=== PATIENT | male | born 1950 | race Two or more races ===

== ENCOUNTER → 2018-09-12 | Outpatient (CLI) | payer MEDICARE ==
--- NOTE | 2018-09-12 17:40 | US ---
EXAMINATION TYPE: US carotid duplex BILAT DATE OF EXAM: 09/12/2018 COMPARISON: NONE CLINICAL HISTORY: R42 Dizziness. Dizziness and giddiness, 1 episode on 08/21/18. EXAM MEASUREMENTS: RIGHT: Peak Systolic Velocity (PSV) cm/sec ----- Right CCA: 86.6 ----- Right ICA: 63.9 ----- Right ECA: 64.3 ICA/CCA ratio: 0.7 RIGHT: End Diastole cm/sec ----- Right CCA: 23.8 ----- Right ICA: 21.1 ----- Right ECA: 11.0 LEFT: Peak Systolic Velocity (PSV) cm/sec ----- Left CCA: 83.3 ----- Left ICA: 64.9 ----- Left ECA: 87.7 ICA/CCA ratio: 0.8 LEFT: End Diastole cm/sec ----- Left CCA: 21.6 ----- Left ICA: 22.3 ----- Left ECA: 20.5 VERTEBRALS (direction of flow): Right Vertebral: Antegrade Left Vertebral: Antegrade Rhythm: Normal Intimal thickening seen bilaterally. Minimal plaque seen right bifurcation. No elevated velocities ob tained. No significant stenosis seen. Grayscale, color Doppler, spectral Doppler imaging performed of the carotid arteries. Waveform analys is does not show significant stenosis in the internal carotid arteries. IMPRESSION: No hemodynamic significant stenosis of the proximal internal carotid arteries bilaterall y by Doppler criteria, an indirect measurement of carotid stenosis.
== END | disposition home or self-care (01) ==
LOC: RADUSWWP 16:22
PROVIDERS: ATTEND Family Medicine
DX: R42 Dizziness and giddiness (principal)
CPT/HCPCS: 93880

== ENCOUNTER 2022-08-23 20:01 | Emergency (ER) | payer MEDICARE ==
[2022-08-23 21:02] VITALS: RESP 18
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
--- NOTE | 2022-08-23 21:46 | XR ---
EXAMINATION TYPE: XR chest 2V DATE OF EXAM: 08/23/2022 9:17 PM COMPARISON: none TECHNIQUE: XR chest 2V Frontal and lateral views of the chest. CLINICAL INDICATION:Male, 72 years old with history of pain; FINDINGS: Lungs/Pleura: Prominent interstitial lung markings are seen scattered throughout the lungs with nona ening of the diaphragm and increased lucency of the lung apices. No evidence of focal consolidation, pneumothorax or pleural effusion. Pulmonary vascularity: Unremarkable. Heart/mediastinum: Cardiomediastinal silhouette is prominent in size. Musculoskeletal: No acute osseous pathology. Remote right-sided rib fractures. IMPRESSION: 1. No acute cardiopulmonary disease process. 2. COPD changes.
--- NOTE | 2022-08-23 21:47 | XR ---
EXAMINATION TYPE: XR hand complete RT DATE OF EXAM: 08/23/2022 9:21 PM INDICATION: Patient age:Male; 72 years old; Reason for study: pain; COMPARISON: None TECHNIQUE: Frontal, lateral and oblique views of the right hand were obtained. FINDINGS: Normal alignment of the visualized joints. No acute osseous pathology is identified. No e vidence of soft tissue swelling. IMPRESSION: No acute osseous pathology.
--- NOTE | 2022-08-23 21:48 | XR ---
EXAMINATION TYPE: XR elbow complete RT DATE OF EXAM: 08/23/2022 9:22 PM INDICATION: Patient age:Male; 72 years old; Reason for study: pain; COMPARISON: None TECHNIQUE: The right elbow was examined in AP, lateral, and oblique projections. FINDINGS: Mild soft tissue swelling around the posterior elbow with questionable anterior fat pad sig n. No displaced fractures definitively visualized. Degeneration changes with osteophyte formation sebastian und the coronoid process. No right lateral upper condyle. IMPRESSION: No obvious displaced fracture there is questionable anterior fat pad sign suggesting occult fracture consider CT as clinically warranted.
[2022-08-23 23:11] VITALS: BP 143/89; PULSE 69; TEMP 97.3
== END 2022-08-23 23:08 | disposition home or self-care (01) ==
LOC: EC 20:01
DX: S42.401A Unspecified fracture of lower end of right humerus, initial encounter for closed fracture (principal); J44.9 Chronic obstructive pulmonary disease, unspecified; V89.2XXA Person injured in unspecified motor-vehicle accident, traffic, initial encounter; Y92.411 Interstate highway as the place of occurrence of the external cause
CPT/HCPCS: 71046; 99284

== ENCOUNTER 2024-01-28 15:18 | Observation (INO) | payer MEDICARE, OTHER ==
--- NOTE | 2024-01-28 15:36 | ED ---
Male Urogenital HPI - General Chief complaint: Urogenital Stated complaint: Abdominal Pain Time Seen by Provider: 01/28/24 15:33 Source: patient, family, RN notes reviewed, old records reviewed, Caregiver Mode of arrival: ambulatory Limitations: altered mental status - History of Present Illness Initial comments: This is a 73-year-old male to ER for evaluation of decreased urinary output with abdominal pain and bloating. No history of abdominal surgery no real significant medical history. History obtained from daughter at bedside as patient is not speaking with. Symptoms for greater than 2 days MD Complaint: dysuria -: days(s) Severity: moderate Consistency: constant Improves with: none Worsens with: none new medication Reports: urinary retention - Related Data Home Medications Medication Instructions Recorded Confirmed Lisinopril-Hctz 20-25 mg 1 tab PO DAILY 01/28/24 01/28/24 [Zestoretic 20-25] Meloxicam [Mobic] 15 mg PO DAILY 01/28/24 01/28/24 Previous Rx's Medication Instructions Recorded Tamsulosin [Flomax] 0.4 mg PO BID 30 Days #60 cap 01/29/24 polyethylene glycoL 3350 [Miralax] 17 gm PO DAILY 30 Days #30 packet 01/29/24 Allergies Allergy/AdvReac Type Severity Reaction Status Date / Time No Known Allergies Allergy Verified 02/03/24 05:19 Review of Systems ROS Statement: Those systems with pertinent positive or pertinent negative responses have been documented in the HPI. ROS Other: All systems not noted in ROS Statement are negative. Past Medical History Past Medical History: Hypertension History of Any Multi-Drug Resistant Organisms: None Reported Past Surgical History: No Surgical Hx Reported Past Psychological History: No Psychological Hx Reported Smoking Status: Never smoker Past Alcohol Use History: None Reported, Daily Past Drug Use History: None Reported General Exam General appearance: alert, in no apparent distress, anxious Head exam: Present: atraumatic, normocephalic, normal inspection Eye exam: Present: normal appearance, PERRL, EOMI. Absent: scleral icterus, conjunctival injection, periorbital swelling ENT exam: Present: normal exam, mucous membranes moist Neck exam: Present: normal inspection. Absent: tenderness, meningismus, l ymphadenopathy Respiratory exam: Present: normal lung sounds bilaterally. Absent: respiratory distress, wheezes, rales, rhonchi, stridor Cardiovascular Exam: Present: regular rate, normal rhythm, normal heart sounds. Absent: systolic murmur, diastolic murmur, rubs, gallop, clicks GI/Abdominal exam: Present: soft, normal bowel sounds. Absent: distended, tenderness, guarding, rebound, rigid Extremities exam: Present: normal inspection, full ROM, normal capillary refill. Absent: tenderness, pedal edema, joint swelling, calf tenderness Back exam: Present: normal inspection Neurological exam: Present: alert, oriented X3, CN II-XII intact Psychiatric exam: Present: normal affect, normal mood Skin exam: Present: warm, dry, intact, normal color. Absent: rash Course Vital Signs 01/28/24 01/28/24 01/28/24 15:26 17:30 20:28 Temperature 97.8 F Pulse Rate 104 H 82 82 Respiratory 18 18 18 Rate Blood Pressure 160/90 129/83 132/80 O2 Sat by Pulse 95 99 100 Oximetry - Reevaluation(s) Reevaluation #1: 01/28/24 16:25 Medical records reviewed Reevaluation #2: 01/28/24 16:25 Patient symptoms unchanged Reevaluation #3: 01/28/24 16:25 Patient informed of results and questions answered Reevaluation #4: Was pt. sent in by a medical professional or institution (, PA, MILITARY PILOT, urgent care, hospital, or fpc...) When possible be specific @ -no Did you speak to anyone other than the patient for history (EMS, parent, family, police, friend...)? What history was obtained from this source @ -no Did you review nursing and triage notes (agree or disagree)? Why? @ -agree Are old charts reviewed (outside hosp., previous admission, EMS record, old EKG, old radiological studies, urgent care reports/EKG's, fpc records)? Report findings @ -yes Differential Diagnosis (chest pain, altered mental status, abdominal pain women, abdominal pain men, vaginal bleeding, weakness, fever, dyspnea, syncope, headache, dizziness, GI bleed, back pain, seizure, CVA, palpatations, mental health, musculoskeletal)? @ -prior EKG interpreted by me (3pts min.). @ -no X-rays interpreted by me (1pt min.). @ -no CT interpreted by me (1pt min.). @ -yes negative for acute disease U/S interpreted by me (1pt. min.). @ -no What testing was considered but not performed or refused? (CT, X-rays, U/S, labs )? Why? @ -none What meds were considered but not given or refused? Why? @ -none Did you discuss the management of the patient with other professionals (professionals i.e. Dr., PA, MILITARY PILOT, lab, RT, psych nurse, social work faculty member, ballpoint pens assembler, teacher, articulation officer, case hardener)? Give summary @ -no Was smoking cessation discussed for >3mins.? @ -no Was critical care preformed (if so, how long)? @ -no Were there social determinants of health that impacted care today? How? (Homelessness, low income, unemployed, alcoholism, drug addiction, transportation, low edu. Level, literacy, decrease access to med. care, senior living, rehab)? @ -none Was there de-escalation of care discussed even if they declined (Discuss DNR or withdrawal of care, Hospice)? DNR status @ -no What co-morbidities impacted this encounter? (DM, HTN, Smoking, COPD, CAD, Cancer, CVA, ARF, Chemo, Hep., AIDS, mental health diagnosis, sleep apnea, morbid obesity)? @ -none Was patient admitted / discharged? Hospital course, mention meds given and route, prescriptions, significant lab abnormalities, going to OR and other pertinent info. @ - 73 male to the ER for evaluation of acute urinary retention presenting with positive abdominal pain severe abdominal pain [place] catheter placed greater than 1000 output, patient admitted for urinary retention as he has poor follow- up Admitted Undiagnosed new problem with uncertain prognosis? @ -no Drug Therapy requiring intensive monitoring for toxicity (Heparin, Nitro, Insulin, Cardizem)? @ -no Were any procedures done? @ -no Diagnosis/symptom? @ -Retention with UTI Acute, or Chronic, or Acute on Chronic? @ -Acute Uncomplicated (without systemic symptoms) or Complicated (systemic symptoms)? @ -Complicated Side effects of treatment? @ -no Exacerbation, Progression, or Severe Exacerbation? @ -exacerbation Poses a threat to life or bodily function? How? (Chest pain, [place], [place], pneumonia, PE, COPD, DKA, ARF, appy, cholecystitis, CVA, Diverticulitis, Homicidal, Suicidal, threat to staff... and all critical care pts) @ -no Reevaluation #5: Differential Abdominal Pain Men: Appendicitis, cholecystitis, diverticulosis, ischemic bowel, pancreatitis, he patitis, UTI, gastroenteritis, AAA, incarcerated hernia, bowel obstruction, constipation, inflammatory bowel, hepatitis, peptic ulcer disease, splenic infarction, perforated viscus, testicular torsion, this is not meant to be an all-inclusive list - Consultations Consultation #1: Spoke with sound who agrees to admit the patient Medical Decision Making - Medical Decision Making 73 male to the ER for evaluation of acute urinary retention presenting with positive abdominal pain severe abdominal pain [place] catheter placed greater than 1000 output, patient admitted for urinary retention as he has poor follow-up - Lab Data Result diagrams: 01/29/24 04:30 01/29/24 04:30 Lab Results 01/28/24 01/28/24 01/28/24 Range/Units 15:41 15:41 15:41 WBC 12.4 H (3.8-10.6) k/uL RBC 5.25 (4.30-5.90) m/uL Hgb 15.0 (13.0-17.5) gm/dL Hct 46.0 (39.0-53.0) % MCV 87.7 (80.0-100.0) fL MCH 28.6 (25.0-35.0) pg MCHC 32.6 (31.0-37.0) g/dL RDW 13.4 (11.5-15.5) % Plt Count 222 (150-450) k/uL MPV 7.2 Neutrophils % 86 % Lymphocytes % 8 % Monocytes % 4 % Eosinophils % 1 % Basophils % 0 % Neutrophils # 10.6 H (1.3-7.7) k/uL Lymphocytes # 1.0 (1.0-4.8) k/uL Monocytes # 0.5 (0-1.0) k/uL Eosinophils # 0.1 (0-0.7) k/uL Basophils # 0.0 (0-0.2) k/uL Sodium 140 (137-145) mmol/L Potassium 3.7 (3.5-5.1) mmol/L Chloride 108 H (98-107) mmol/L Carbon Dioxide 23 (22-30) mmol/L Anion Gap 9 mmol/L BUN 12 (9-20) mg/dL Creatinine 1.01 (0.66-1.25) mg/dL Est GFR (CKD-EPI)AfAm 84 (>60 ml/min/1.73 sqM) Est GFR (CKD-EPI)NonAf 73 (>60 ml/min/1.73 sqM) Glucose 131 H (74-99) mg/dL Calcium 9.0 (8.4-10.2) mg/dL Total Bilirubin 1.0 (0.2-1.3) mg/dL AST 23 (17-59) U/L ALT 19 (4-49) U/L Alkaline Phosphatase 112 (38-126) U/L Total Protein 6.9 (6.3-8.2) g/dL Albumin 4.1 (3.5-5.0) g/dL Amylase 45 (30-110) U/L Lipase 65 (23-300) U/L Urine Color Colorless Urine Appearance Clear (Clear) Urine pH 6.5 (5.0-8.0) Ur Specific [place] 1.006 (1.001-1.035) Urine Protein Negative (Negative) Urine Glucose (UA) Negative (Negative) Urine Ketones Negative (Negative) Urine Blood Moderate H (Negative) Urine Nitrite Negative (Negative) Urine Bilirubin Negative (Negative) Urine Urobilinogen <2.0 (<2.0) mg/dL Ur Leukocyte Esterase Negative (Negative) Urine RBC 15 H (0-5) /hpf Urine WBC 1 (0-5) /hpf Urine Mucus Rare H (None) /hpf - Radiology Data Radiology results: report reviewed (CT abdomen pelvis significant distended urinary bladder), image reviewed Disposition Clinical Impression: Abdominal pain, Urinary retention, Malfunction of [place] catheter Disposition: ADMITTED IP TO THIS [facility] Condition: Stable Is patient prescribed a controlled substance at d/c from ED?: No Time of Disposition: 19:00
[2024-01-28] MEDS: SODIUM CHLORIDE 0.9% 1,000 ML IV STA (15:52)
[2024-01-28 16:03] LABS: Basophils % (A) 0 %; Eosinophils # (A) 0.1 k/uL (0-0.7); Eosinophils % (A) 1 %; Lymphocytes % (A) 8 %; MCH 28.6 pg (25.0-35.0); MCHC 32.6 g/dL (31.0-37.0); MCV 87.7 fL (80.0-100.0); Mean Platelet Volume 7.2; Monocytes # (A) 0.5 k/uL (0-1.0); Monocytes % (A) 4 %; Neutrophils # (A) 10.6 k/uL (1.3-7.7); Neutrophils % (A) 86 %; Platelet Count 222 k/uL (150-450); RBC 5.25 m/uL (4.30-5.90); RDW 13.4 % (11.5-15.5); WBC 12.4 k/uL (3.8-10.6)
[2024-01-28 16:14] LABS: ALT 19 U/L (4-49); AST 23 U/L (17-59); African American GFR (CKD) 84 (>60 ml/min/1.73 sqM); Albumin 4.1 g/dL (3.5-5.0); Alkaline Phosphatase 112 U/L (38-126); Amylase 45 U/L (30-110); Anion Gap 9 mmol/L; Blood Urea Nitrogen 12 mg/dL (9-20); Carbon Dioxide 23 mmol/L (22-30); Chloride 108 mmol/L (98-107); Glucose 131 mg/dL (74-99); Lipase 65 U/L (23-300); Non-African American GFR(CKD) 73 (>60 ml/min/1.73 sqM); Potassium 3.7 mmol/L (3.5-5.1); Sodium 140 mmol/L (137-145); Total Protein 6.9 g/dL (6.3-8.2)
--- NOTE | 2024-01-28 17:17 | CT ---
EXAMINATION TYPE: CT abdomen pelvis wo con CT DLP: 979.1 mGycm, Automated exposure control for dose reduction was used. DATE OF EXAM: 01/28/2024 4:34 PM COMPARISON: None CLINICAL INDICATION: Male, 73 years old with history of abdominal pain; abdominal/flank pain TECHNIQUE: Axial CT abdomen pelvis wo con;Sagittal and coronal reformats were created on a separate workstation. Contrast used: mL of , (none if empty) Oral contrast used: without Oral Contrast (none if empty) FINDINGS: LOWER CHEST: Unremarkable left lower lobe 11 mm pulmonary nodule. ABDOMEN LIVER: Unremarkable GALLBLADDER AND BILE DUCTS: Unremarkable. PANCREAS: Unremarkable. SPLEEN: Unremarkable. ADRENAL GLANDS: Unremarkable. KIDNEYS AND URETERS: Mild bilateral hydronephrosis. No obstructing calculus visualized. PELVIS BLADDER: Distended urinary bladder REPRODUCTIVE: Prostate is enlarged in size measuring 6.6 cm in transverse dimension. ABDOMEN & PELVIS STOMACH AND BOWEL: No evidence of bowel obstruction. The appendix is normal. PERITONEUM/RETROPERITONEUM: No evidence of pneumoperitoneum or free fluid. VASCULATURE: No evidence of aortic aneurysm. MUSCULOSKELETAL: No acute osseous abnormalities LYMPH NODES: No gross evidence for lymphadenopathy. SOFT TISSUE/ABDOMINAL WALL: Unremarkable 1. IMPRESSION: 2. Distended urinary bladder with mild bilateral hydronephrosis likely secondary patients time inter arcadio from last void, or bladder outlet obstruction. 3. Prostatomegaly, correlate with serum PSA. 4. Left lower lobe 11 mm pulmonary nodule. Further workup with PET/CTs recommended to exclude neopla stic process. 5. The appendix is normal. 6. No obstructive calculi visualized. [facility], , 01/28/2024 5:15 PM
[2024-01-28 18:56] LABS: Appearance,Urine Clear (Clear); Bilirubin,Urine Negative (Negative); Blood,Urine Moderate (Negative); Color,Urine Colorless; Glucose,Urine (UA) Negative (Negative); Ketones,Urine Negative (Negative); Leukocyte Esterase,Urine Negative (Negative); Mucus,Urine Rare /hpf; Nitrite,Urine Negative (Negative); PH, Urine 6.5 (5.0-8.0); Protein,Urine Negative (Negative); RBC,Urine 15 /hpf (0-5); Specific Gravity,Urine 1.006 (1.001-1.035); Urobilinogen,Urine <2.0 mg/dL (<2.0); WBC,Urine 1 /hpf (0-5)
[2024-01-28] MEDS ORDERED: ONDANSETRON 4 MG/2 ML VIAL IVP PRN (19:01)
[2024-01-28] MEDS ORDERED: NALOXONE 0.4 MG/ML 1 ML VIAL IV PRN (19:01)
[2024-01-28] MEDS ORDERED: MORPHINE SULFATE 4 MG/ML SYRINGE IV PRN (19:01)
--- NOTE | 2024-01-28 23:23 | P.HPIM ---
History of Present Illness H&P Date: 01/28/24 Chief Complaint: Abdominal pain and urinary retention Patient is a 73-year-old male with past medical history of hypertension presented to the ED with abdominal pain and urinary retention. The patient mentions having a low stream of urine since the past couple of days. Today morning he started having lower abdominal pain, without radiation, and was not able to urinate even when he had the urge. The patient denies having any such episodes previously. The patient does not speak [place]ian but daughter at bedside requested to serve as gravity flow irrigator. The daughter reports the patient was burping a lot, patient denies bloating but reports some chronic constipation. The pa tient also uses compression stockings at home for lower extremity edema. Denies dysuria, blood in the urine or stool, incontinence, fever, chills, chest pain, shortness of breath, cough, nausea, vomiting, diarrhea. Vitals: T 97.8 F, P 82 bpm, RR 18, BP 139/83, O2 sat 99% on room air ED documentation reviewed and case discussed with ED provider. Labs show WBC 12.4, glucose 131 and UA shows moderate blood, 15 RBC, rare mucus. CT abdomen and pelvis shows distended urinary bladder with mild bilateral hydronephrosis likely secondary to patient's time interval from last void or bladder outlet obstruction and prostatomegaly. In the ED Trinidad catheter was placed and output was found to be greater than 1000 and he was treated with ketorolac and 0.9 normal saline. Review of systems: Pertinent positives and negatives as discussed in HPI, a complete review of systems was performed and all other systems are negative. PMH: Hypertension PSH: None FMH: None Allergies: None Social history: Tobacco: Former smoker Alcohol: Daily 2 drinks per day Recreational drugs: Denies use Travel: No recent travel history Sick contacts: None Physical examination: Vital signs reviewed General: non toxic, no distress, appears at stated age, obese Derm: no unusual rashes/lesions, warm Head: atraumatic, normocephalic, symmetric Eyes: EOMI, anicteric sclera ENT: Nose and ears atraumatic Cardiovascular: S1S2 reg, no murmur,no edema Lungs: CTA bilateral, no rhonchi, no rales, no accessory muscle use Abdominal: soft, nontender to palpation, no guarding Ext: muscle strength 5 out of 5 in all 4 extremities grossly, no gross muscle atrophy, no contractures, Neuro: CN II-XI grossly intact, no gross focal neuro deficits Psych: Alert, oriented, appropriate affect Assessment/Plan: Patient is a 73-year-old male with past medical history of hypertension presented to the ED with abdominal pain and urinary retention and he is being admitted for further workup of hydronephrosis #. Urinary retention with bilateral hydronephrosis, likely secondary to prostatomegaly Heart rate on presentation 104 bpm, WBC 12.4 Urine output >1000 on Trin[place] catheter placement CT of abdomen and pelvis shows distended urinary bladder with mild bilateral hydronephrosis likely secondary to patient's time interval from last void or bladder outlet obstruction and prostatomegaly. Continue tamsulosin 0.4 mg p.o. at bedtime Urology consulted Discontinue morphine #. Nausea and vomiting, improved Continue ondansetron 4 mg IVP every 8 hours as needed #. Hypertension Continue lisinoprilhydrochlorothiazide 20-25 mg 1 tablet p.o. daily F: 0.9 normal saline 75 mL/h E: Replete as required N: Regular diet A: Ambulatory DVT prophylaxis: Lovenox 40 mg SQ daily The patient is admitted with an anticipated less than 2 midnight stay for evaluation of urinary retention CODE STATUS: Full code Discussed with: Patient Anticipated discharge place: Home Past Medical History Past Medical History: Hypertension, Osteoarthritis (OA) History of Any Multi-Drug Resistant Organisms: None Reported Past Surgical History: No Surgical Hx Reported Past Anesthesia/Blood Transfusion Reactions: No Reported Reaction Past Psychological History: No Psychological Hx Reported Smoking Status: Former smoker Past Alcohol Use History: None Reported, Daily Past Drug Use History: None Reported Medications and Allergies Home Medications Medication Instructions Recorded Confirmed Type Lisinopril-Hctz 20-25 mg 1 tab PO DAILY 01/28/24 01/28/24 History [Zestoretic 20-25] Meloxicam [Mobic] 15 mg PO DAILY 01/28/24 01/28/24 History Tamsulosin [Flomax] 0.4 mg PO HS 01/28/24 01/28/24 History Allergies Allergy/AdvReac Type Severity Reaction Status Date / Time No Known Allergies Allergy Verified 01/28/24 18:48 Physical Exam Vitals: Vital Signs Temp Pulse Pulse Resp BP BP Pulse Ox 01/28/24 21:20 98.0 F 82 17 172/74 96 01/28/24 20:28 82 18 132/80 100 01/28/24 17:30 82 18 129/83 99 01/28/24 15:26 97.8 F 104 H 18 160/90 95 Intake and Output 01/28/24 01/28/24 01/28/24 06:59 14:59 22:59 Output Total 800 Balance -800 Output: Urine 800 Uretheral (Trin[place]) 800 Other: Weight 104.326 kg Results CBC & Chem 7: 01/28/24 15:41 01/28/24 15:41 Labs: Abnormal Lab Results - Last 24 Hours (Table) 01/28/24 01/28/24 01/28/24 Range/Units 15:41 15:41 15:41 WBC 12.4 H (3.8-10.6) k/uL Neutrophils # 10.6 H (1.3-7.7) k/uL Chloride 108 H (98-107) mmol/L Glucose 131 H (74-99) mg/dL Urine Blood Moderate H (Negative) Urine RBC 15 H (0-5) /hpf Urine Mucus Rare H (None) /hpf Thrombosis Risk Factor Assmnt - Choose All That Apply Any of the Below Risk Factors Present?: No Other Risk Factors: No Other congenital or acquired thrombophilia - If yes, enter type in comment: No Thrombosis Risk Factor Assessment Level: Very Low Risk
[2024-01-29 01:31] VITALS: RESP 16
[2024-01-29] MEDS: SODIUM CHLORIDE 0.9% 1,000 ML IV SCH (04:16)
[2024-01-29] MEDS: KETOROLAC 15 MG/ML 1 ML VIAL IVP STA (04:17)
[2024-01-29] MEDS: ENOXAPARIN 40 MG/0.4 ML SYRINGE SQ SCH (08:00)
[2024-01-29] MEDS: MELOXICAM 7.5 MG TAB PO SCH (08:00)
[2024-01-29] MEDS: LISINOPRIL-HCTZ 20-25 MG 1 EACH TAB PO SCH (08:00)
[2024-01-29 09:17] LABS: Basophils # (A) 0.04 X 10*3/uL (0.00-0.10); Basophils % (A) 0.4 %; Eosinophils # (A) 0.21 X 10*3/uL (0.04-0.35); Eosinophils % (A) 2.3 %; HGB 13.1 g/dL (13.0-17.0); Lymphocytes % (A) 16.1 %; MCH 28.3 pg (27.0-32.0); MCHC 32.8 g/dL (32.0-37.0); MCV 86.4 FL (80.0-97.0); Mean Platelet Volume 9.7 FL (9.5-12.2); Monocytes # (A) 0.61 X 10*3/uL (0.20-1.00); Monocytes % (A) 6.6 %; NRBC Per 100 WBC 0 X 10*3/uL (0.00-0.01); Neutrophils # (A) 6.92 X 10*3/uL (1.80-7.70); Neutrophils % (A) 74.3 %; Platelet Count 221 X 10*3/uL (140-440); RBC 4.63 X 10*6/uL (4.40-5.60); WBC 9.31 X 10*3/uL (4.50-10.00)
[2024-01-29] MEDS ORDERED: LORazepam 0.5 MG TAB PO PRN (09:44)
[2024-01-29] MEDS ORDERED: LORazepam 1 MG TAB PO PRN ×3 (09:44)
--- NOTE | 2024-01-29 10:01 | P.GSCN ---
History of Present Illness Consult date: 01/29/24 History of present illness: 73-year-old gentleman admitted to the hospital and urinary retention. For the last 48 hours he has been having problems urinating. He came to the emergency room was catheterized for over a liter of urine. The patient is Tamazight-s peaking only. He states that he is not had problems until the last 48 hours. There has been some constipation. He has been on Flomax for the last couple of months. He has not seen a urologist. There is minimal incontinence or hematuria. Urine is clear at the bedside. His bowels are now working. Review of Systems All systems: negative - Constitutional Denies fever, Denies weight loss - EENT Eyes: denies blurred vision Ears, nose, mouth and throat: Denies dysphagia - Cardiovascular Denies chest pain, Denies shortness of breath - Respiratory Denies cough, Denies 7 - Gastrointestinal Reports as per HPI - Genitourinary Denies dysuria, Denies hematuria - Integumentary Denies rash, Denies unusual bruising - Neurological Denies headaches, Denies syncope - Hematologic/Lymphatic Denies easy bleeding, Denies easy bruising Past Medical History Past Medical History: Hypertension, Osteoarthritis (OA) History of Any Multi-Drug Resistant Organisms: None Reported Past Surgical History: No Surgical Hx Reported Past Anesthesia/Blood Transfusion Reactions: No Reported Reaction Past Psychological History: No Psychological Hx Reported Smoking Status: Former smoker Past Alcohol Use History: None Reported, Daily Past Drug Use History: None Reported Medications and Allergies Home Medications Medication Instructions Recorded Confirmed Type Lisinopril-Hctz 20-25 mg 1 tab PO DAILY 01/28/24 01/28/24 History [Zestoretic 20-25] Meloxicam [Mobic] 15 mg PO DAILY 01/28/24 01/28/24 History Tamsulosin [Flomax] 0.4 mg PO HS 01/28/24 01/28/24 History Allergies Allergy/AdvReac Type Severity Reaction Status Date / Time No Known Allergies Allergy Verified 01/28/24 18:48 Surgical - Exam Vital Signs Temp Pulse Resp BP Pulse Ox 97.8 F 104 H 18 160/90 95 01/28/24 15:26 01/28/24 15:26 01/28/24 15:26 01/28/24 15:26 01/28/24 15:26 - General well developed, well nourished, no distress - Eyes normal ocular movement, no icteric - ENT no hearing loss, no congestion - Neck no masses, trachea midline - Respiratory normal respiratory effort, clear to auscultation - Abdomen Abdomen: soft, non tender, no guarding, no rigid, no rebound - Integumentary no rash, no abnormal pigmentation - Neurologic no disoriented, no combative - Psychiatric oriented to time, oriented to person, oriented to place, speech is normal, memory intact Results - Labs 01/29/24 04:30 01/28/24 15:41 Abnormal Lab Results - Last 24 Hours (Table) 01/28/24 01/28/24 01/28/24 Range/Units 15:41 15:41 15:41 WBC 12.4 H (3.8-10.6) k/uL Neutrophils # 10.6 H (1.3-7.7) k/uL Chloride 108 H (98-107) mmol/L Glucose 131 H (74-99) mg/dL Urine Blood Moderate H (Negative) Urine RBC 15 H (0-5) /hpf Urine Mucus Rare H (None) /hpf Diabetes panel 01/28/24 Range/Units 15:41 Sodium 140 (137-145) mmol/L Potassium 3.7 (3.5-5.1) mmol/L Chloride 108 H (98-107) mmol/L Carbon Dioxide 23 (22-30) mmol/L BUN 12 (9-20) mg/dL Creatinine 1.01 (0.66-1.25) mg/dL Glucose 131 H (74-99) mg/dL Calcium 9.0 (8.4-10.2) mg/dL AST 23 (17-59) U/L ALT 19 (4-49) U/L Alkaline Phosphatase 112 (38-126) U/L Total Protein 6.9 (6.3-8.2) g/dL Albumin 4.1 (3.5-5.0) g/dL Calcium panel 01/28/24 Range/Units 15:41 Calcium 9.0 (8.4-10.2) mg/dL Albumin 4.1 (3.5-5.0) g/dL Pituitary panel 01/28/24 Range/Units 15:41 Sodium 140 (137-145) mmol/L Potassium 3.7 (3.5-5.1) mmol/L Chloride 108 H (98-107) mmol/L Carbon Dioxide 23 (22-30) mmol/L BUN 12 (9-20) mg/dL Creatinine 1.01 (0.66-1.25) mg/dL Glucose 131 H (74-99) mg/dL Calcium 9.0 (8.4-10.2) mg/dL Adrenal panel 01/28/24 Range/Units 15:41 Sodium 140 (137-145) mmol/L Potassium 3.7 (3.5-5.1) mmol/L Chloride 108 H (98-107) mmol/L Carbon Dioxide 23 (22-30) mmol/L BUN 12 (9-20) mg/dL Creatinine 1.01 (0.66-1.25) mg/dL Glucose 131 H (74-99) mg/dL Calcium 9.0 (8.4-10.2) mg/dL Total Bilirubin 1.0 (0.2-1.3) mg/dL AST 23 (17-59) U/L ALT 19 (4-49) U/L Alkaline Phosphatase 112 (38-126) U/L Total Protein 6.9 (6.3-8.2) g/dL Albumin 4.1 (3.5-5.0) g/dL Assessment and Plan Assessment: Impression: Urinary retention acute and chronic. Acute constipation. Recommendations: It is possibly constipation led to the urine retention on top of his BPH. I will increase his Flomax to twice daily. From a urologic standpoint he can go home. I did see him in the office later in the week for a voiding trial.
[2024-01-29 10:22] LABS: ALT 14 U/L (10-49); AST 17 U/L (14-35); Albumin 3.6 g/dL (3.8-4.9); Albumin/Globulin Ratio 1.89 Ratio (1.60-3.17); Alkaline Phosphatase 90 U/L (41-126); Blood Urea Nitrogen 16.2 mg/dL (9.0-27.0); Calcium 8.3 mg/dL (8.7-10.3); Carbon Dioxide 24.8 mmol/L (21.6-31.8); Chloride 108 mmol/L (96-109); Globulin 1.9 g/dL (1.6-3.3); Glucose 101 mg/dL (70-110); Lipase 17 U/L (14-60); Phosphorus 2.8 mg/dL (2.4-5.1); Potassium 3.6 mmol/L (3.5-5.5); Sodium 141 mmol/L (135-145); Total Bilirubin 0.8 mg/dL (0.3-1.2); Total Protein 5.5 g/dL (6.2-8.2)
[2024-01-29] MEDS: FOLIC ACID 1 MG TAB PO SCH (10:41)
[2024-01-29] MEDS: THIAMINE 100 MG TAB PO SCH (10:42)
[2024-01-29] MEDS: MULTIVITAMINS, THERA 1 EACH TAB PO SCH (10:42)
--- NOTE | 2024-01-29 11:11 | P.DS ---
Providers Date of admission: 01/28/24 19:02 Expected date of discharge: 01/29/24 Attending physician: Miguel Batista MD Consults: 01/28/24 19:01 Consult Physician Routine Consulting Provider: Adalberto Guerrero Consult Reason/Comments: urinary retention Do you want consulting provider notified?: Yes Primary care physician: Irving Tilley Hospital Course: Discharge Diagnosis: Acute on chronic urinary retention. Likely secondary to BPH combined with constipation. Patient evaluated by urologist, Trinidad catheter placed and patient being discharged home with Trinidad catheter in place and to follow-up with urologist in office for removal of Trinidad catheter and voiding trial. Constipation. Resolved. Patient discharged home with MiraLAX 17 g daily. Pulmonary nodule. Incidental finding on CT 11 mm pulmonary nodule recommend outpatient CT/PET scan imaging. Hypertension. Continue lisinopril/hydrochlorothiazide 20-25 mg tablets daily.. Hospital Course: Patient is a very pleasant 73-year-old male with a past medical history of hypertension and osteoarthritis. He presented to the emergency department on 01/28/2024 secondary to a chief complaint of abdominal pain and urinary retention. Upon arrival to our facility, patient underwent evaluation in the emergency department. Vital signs upon arrival show blood pressure 160/90, heart rate 104, respiratory rate 18, temp 97.8 F, and SpO2 of 95% on room air. Bladder scan completed upon arrival showing urinary retention greater than 1000 cc, Trinidad catheter was inserted with return of 1650 cc of urine. Repeat vitals show significant improvement of blood pressure and heart rate with blood pressure decreasing to 129/83 and heart rate of 82. Labs completed and reviewed. CBC showing leukocytosis with WBC count of 12.4. BMP showing hyperchloremia with chloride of 108 otherwise normal findings. Blood glucose is 131. Liver profile unremarkable. Urinalysis positive for blood and 15 RBCs but negative for infection. CT abdomen and pelvis without contrast was completed showing distended urinary bladder with mild bilateral hydronephrosis likely secondary to patient's interval from last void, prostamegaly, left lower lobe pulmonary nodule recommend outpatient follow-up with PET/CT to exclude neoplastic process. Patient was admitted under services with consultation to urology. He was monitored overnight, patient's abdominal pain fully resolved. Trin[place] catheter remains in place to dependent drainage with good clear straw- colored urinary output. Patient was evaluated by urologist stating urinary retention likely secondary to combination of patient's constipation on top of his BPH, he is recommending increasing Flomax to 0.4 mg twice daily and clearing patient from urological perspective for discharge recommending outpatient follow-up in his office in 3 days for for voiding trial. Patient currently free from any complaints or concerns at this time. Patient and patient's daughter at bedside instructed on discharge instructions. Patient speaks minimal [place] and per his request his daughter is translating at bedside. Patient to be discharged home and to follow-up outpatient with PCP in 1 to 2 days and with urologist in 1 week. Prescription sent for Flomax and MiraLAX. Physical exam: Patient seen and examined at bedside. Vital signs reviewed and stable. General: Nontoxic, no distress and appears stated age. Derm: Skin warm and dry, normal coloration for ethnicity. Head: Atraumatic, normocephalic and symmetric. Eyes: EOM's intact, no lid lag, and anicteric sclera Mouth: no lip lesions, mucus membranes moist Cardiovascular: regular rate and rhythm with normal S1S2, no murmur, positive posterior tibial pulses bilaterally, and cap refill < 2 seconds. Lungs: Respirations even, regular, and unlabored on room air. Lungs CTA bilaterally, no rhonchi, no rales, no wheezing, and no accessory muscle usage. Abdominal: soft, nontender to palpation, no guarding, no appreciable organomegaly Trinidad catheter in place.. Ext: ROM intact. No gross muscle atrophy, no edema, no contractures Neuro: Speech clear, face symmetrical and CN II-XII grossly intact with no noted focal neuro deficits Psych: Alert and oriented to person, place, time, and situation. Appropriate and pleasant affect. A total of 35 minutes of time were spent preparing this complex discharge summary. Pt was discharged on 01/29/2024 at 11:09 AM Patient was seen independently by Nurse Practitioner. This document was prepared using [employer] dictation software. Please allow for errors in engineering patternmaker while rare they do occur. I reviewed the documentation as provided by the ARMANDO above, who is the original author of this note. I agree with the documented assessment and plan, with the following changes: none Patient Condition at Discharge: Stable Plan - Discharge Summary Discharge Rx Participant: Yes New Discharge Prescriptions: New polyethylene glycoL 3350 [Miralax] 17 gm PO DAILY 30 Days #30 packet Continue Lisinopril-Hctz 20-25 mg [Zestoretic 20-25] 1 tab PO DAILY Meloxicam [Mobic] 15 mg PO DAILY Changed Tamsulosin [Flomax] 0.4 mg PO BID 30 Days #60 cap Discharge Medication List Lisinopril-Hctz 20-25 mg [Zestoretic 20-25] 1 tab PO DAILY 01/28/24 [History] Meloxicam [Mobic] 15 mg PO DAILY 01/28/24 [History] Tamsulosin [Flomax] 0.4 mg PO BID 30 Days #60 cap 01/29/24 [Rx] polyethylene glycoL 3350 [Miralax] 17 gm PO DAILY 30 Days #30 packet 01/29/24 [Rx] Follow up Appointment(s)/Referral(s): Irving Tilley MD [Primary Care Provider] - 1-2 days Adalberto Guerrero MD [STAFF PHYSICIAN] - 3 Days (Home with Trin[place], tamsulosin twice daily) Patient Instructions/Handouts: Urinary Retention in Men (ED) Activity/Diet/Wound Care/Special Instructions: Activity: As tolerated. Take breaks as needed. Diet: Heart healthy and carb consistent diet. Avoid salts, or foods with hidden salts such as canned or boxed foods and frozen dinners. Extra salt makes your heart work harder and traps the fluid in your body for longer. Special Instructions: Take all of your medications as directed and remember to keep all of your doctor's appointments and follow-up as needed. Pulmonary nodule noted on CT imaging, recommend outpatient follow-up with PET scan/CT scan for further diagnostic. Wishing you the best of luck!! Thank you for allowing us to participate in your care, it was Truly a pleasure having you for our patient!!! . Discharge Disposition: HOME SELF-CARE
[2024-01-29 12:39] VITALS: BP 146/71; PULSE 66; TEMP 97.9
[2024-01-29] MEDS ORDERED: TAMSULOSIN 0.4 MG CAP.ER.24H PO SCH (21:00)
== END 2024-01-29 13:35 | disposition home or self-care (01) ==
LOC: EC 15:18 → 6NMEDSUR 19:02 → 5NMEDONC 19:25
PROVIDERS: ADMIT Internal Medicine; ATTEND Internal Medicine
DX: R33.8 Other retention of urine (principal); R91.1 Solitary pulmonary nodule; I10 Essential (primary) hypertension; D72.829 Elevated white blood cell count, unspecified; E87.8 Other disorders of electrolyte and fluid balance, not elsewhere classified; K59.09 Other constipation; M19.90 Unspecified osteoarthritis, unspecified site; Z87.891 Personal history of nicotine dependence; Z79.1 Long term (current) use of non-steroidal anti-inflammatories (NSAID)
CPT/HCPCS: 96372; 99285; 51702; 36415; 80053 ×2; 82150; 83690 ×2; 83735; 84100; 85025 ×2; 81001; 74176; G0378 ×2; J1650

== ENCOUNTER 2024-02-03 05:14 | Emergency (ER) | payer MEDICARE ==
[2024-02-03 05:19] VITALS: TEMP 97.7
--- NOTE | 2024-02-03 06:31 | ED ---
Male Urogenital HPI - General Chief complaint: Urogenital Stated complaint: Urogenital Time Seen by Provider: 02/03/24 05:53 Source: patient, family, RN notes reviewed Mode of arrival: ambulatory Limitations: language barrier - History of Present Illness Initial comments: 73-year-old male presents for department with chief complaint of urinary retention. Patient did have this problem approximately 1 week ago and was admitted with Trinidad catheter placement and urology consultation. Patient had a catheter removed states she has not been able to go he states only having some dribbling denies any fevers or chills no flank pain no dysuria. Patient does have known BPH. - Related Data Home Medications Medication Instructions Recorded Confirmed Lisinopril-Hctz 20-25 mg 1 tab PO DAILY 01/28/24 01/28/24 [Zestoretic 20-25] Meloxicam [Mobic] 15 mg PO DAILY 01/28/24 01/28/24 Previous Rx's Medication Instructions Recorded Tamsulosin [Flomax] 0.4 mg PO BID 30 Days #60 cap 01/29/24 polyethylene glycoL 3350 [Miralax] 17 gm PO DAILY 30 Days #30 packet 01/29/24 Allergies Allergy/AdvReac Type Severity Reaction Status Date / Time No Known Allergies Allergy Verified 02/03/24 05:19 Review of Systems ROS Statement: Those systems with pertinent positive or pertinent negative responses have been documented in the HPI. ROS Other: All systems not noted in ROS Statement are negative. Past Medical History Past Medical History: Hypertension, Osteoarthritis (OA) History of Any Multi-Drug Resistant Organisms: None Reported Past Surgical History: No Surgical Hx Reported Past Anesthesia/Blood Transfusion Reactions: No Reported Reaction Past Psychological History: No Psychological Hx Reported Smoking Status: Former smoker Past Alcohol Use History: Daily Past Drug Use History: None Reported General Exam Limitations: language barrier General appearance: alert, in no apparent distress Head exam: Present: atraumatic, normocephalic, normal inspection Eye exam: Present: normal appearance, PERRL, EOMI. Absent: scleral icterus, conjunctival injection, periorbital swelling Respiratory exam: Present: normal lung sounds bilaterally. Absent: respiratory distress, wheezes, rales, rhonchi, stridor Cardiovascular Exam: Present: regular rate, normal rhythm, normal heart sounds. Absent: systolic murmur, diastolic murmur, rubs, gallop, clicks GI/Abdominal exam: Present: soft, tenderness, normal bowel sounds. Absent: distended, guarding, rebound, rigid Back exam: Absent: CVA tenderness (R), CVA tenderness (L) Neurological exam: Present: alert Skin exam: Present: warm, dry, intact, normal color. Absent: rash Course Vital Signs 02/03/24 02/03/24 05:15 07:51 Temperature 97.7 F Pulse Rate 80 65 Respiratory 18 16 Rate Blood Pressure 192/95 134/76 O2 Sat by Pulse 96 96 Oximetry Medical Decision Making - Medical Decision Making Was pt. sent in by a medical professional or institution (, CHANTEL, CITY DIRECTOR, urgent care, hospital, or jail...) When possible be specific @ -No Did you speak to anyone other than the patient for history (EMS, parent, family, police, friend...)? What history was obtained from this source @ -No Did you review nursing and triage notes (agree or disagree)? Why? @ -I reviewed and agree with nursing and triage notes Were old charts reviewed (outside hosp., previous admission, EMS record, old EKG, old radiological studies, urgent care reports/EKG's, jail records)? Report findings @ -Reviewed recent inpatient records including neurology consult, urinalysis Differential Diagnosis (chest pain, altered mental status, abdominal pain women, abdominal pain men, vaginal bleeding, weakness, fever, dyspnea, syncope, headache, dizziness, GI bleed, back pain, seizure, CVA, palpatations, mental health, musculoskeletal)? @ -Urinary retention, UTI EKG interpreted by me (3pts min.). @ -None X-rays interpreted by me (1pt min.). @ -None done CT interpreted by me (1pt min.). @ -None done U/S interpreted by me (1pt. min.). @ -None done What testing was considered but not performed or refused? (CT, X-rays, U/S, labs)? Why? @ -None What meds were considered but not given or refused? Why? @ -None Did you discuss the management of the patient with other professionals (professionals i.e. CHANTEL Casillas, CITY DIRECTOR, lab, RT, psych nurse, delinquency prevention social worker, club manager, teacher, port patrol officer, egg caser)? Give summary @ -No Was smoking cessation discussed for >3mins.? @ -No Was critical care preformed (if so, how long)? @ -No Were there social determinants of health that impacted care today? How? (Homelessness, low income, unemployed, alcoholism, drug addiction, transportation, low edu. Level, literacy, decrease access to med. care, fdc, rehab)? @ -No Was there de-escalation of care discussed even if they declined (Discuss DNR or withdrawal of care, Hospice)? DNR status @ -No What co-morbidities impacted this encounter? (DM, HTN, Smoking, COPD, CAD, Cancer, CVA, ARF, Chemo, Hep., AIDS, mental health diagnosis, sleep apnea, morbid obesity)? @ -BPH Was patient admitted / discharged? Hospital course, mention meds given and route, prescriptions, significant lab abnormalities, going to OR and other pertinent info. @ -Discharge patient had Trin[place] catheter placed with 1 L of urine out patient feels greatly improved patient has no signs of infection was discharged and has a follow-up appointment next week with urology Undiagnosed new problem with uncertain prognosis? @ -No Drug Therapy requiring intensive monitoring for toxicity (Heparin, Nitro, Insulin, Cardizem)? @ -No Were any procedures done? @ -No Diagnosis/symptom? @ -Urinary retention Acute, or Chronic, or Acute on Chronic? @ -Acute Uncomplicated (without systemic symptoms) or Complicated (systemic symptoms)? @ -Uncomplicated Side effects of treatment? @ -No Exacerbation, Progression, or Severe Exacerbation? @ -No Poses a threat to life or bodily function? How? (Chest pain, [place], NH, pneumonia, PE, COPD, DKA, ARF, appy, cholecystitis, CVA, Diverticulitis, Homicidal, Suicidal, threat to staff... and all critical care pts) @ -No - Lab Data Lab Results 02/03/24 Range/Units 06:48 Urine Color Colorless Urine Appearance Clear (Clear) Urine pH 6.0 (5.0-8.0) Ur Specific [place] 1.007 (1.001-1.035) Urine Protein Negative (Negative) Urine Glucose (UA) Negative (Negative) Urine Ketones Negative (Negative) Urine Blood Moderate H (Negative) Urine Nitrite Negative (Negative) Urine Bilirubin Negative (Negative) Urine Urobilinogen <2.0 (<2.0) mg/dL Ur Leukocyte Esterase Negative (Negative) Urine RBC 1 (0-5) /hpf Urine WBC 1 (0-5) /hpf Disposition Clinical Impression: Urinary retention Disposition: HOME SELF-CARE Condition: Stable Instructions (If sedation given, give patient instructions): Urinary Retention in Men (ED) Additional Instructions: Follow-up with your urologist at your scheduled appointment. Please return to the Emergency Department if symptoms worsen or any other concerns. Is patient prescribed a controlled substance at d/c from ED?: No Referrals: Irving Tilley MD [Primary Care Provider] - 1-2 days Adalberto Guerrero MD [STAFF PHYSICIAN] - 1-2 days Time of Disposition: 07:22
[2024-02-03 07:18] LABS: Appearance,Urine Clear (Clear); Bilirubin,Urine Negative (Negative); Blood,Urine Moderate (Negative); Color,Urine Colorless; Glucose,Urine (UA) Negative (Negative); Ketones,Urine Negative (Negative); Leukocyte Esterase,Urine Negative (Negative); Nitrite,Urine Negative (Negative); Protein,Urine Negative (Negative); RBC,Urine 1 /hpf (0-5); Specific Gravity,Urine 1.007 (1.001-1.035); Urobilinogen,Urine <2.0 mg/dL (<2.0); WBC,Urine 1 /hpf (0-5)
[2024-02-03 07:51] VITALS: BP 134/76; PULSE 65; RESP 16
== END 2024-02-03 07:53 | disposition home or self-care (01) ==
LOC: EC 05:14
CPT/HCPCS: 51702; 51798; 81001; 99284

== ENCOUNTER 2024-02-17 03:50 | Emergency (ER) | payer MEDICARE ==
[2024-02-17 03:57] VITALS: RESP 18; TEMP 97.9
[2024-02-17 05:40] LABS: Appearance,Urine Clear (Clear); Bilirubin,Urine Negative (Negative); Blood,Urine Negative (Negative); Color,Urine Colorless; Glucose,Urine (UA) Negative (Negative); Ketones,Urine Negative (Negative); Leukocyte Esterase,Urine Negative (Negative); Nitrite,Urine Negative (Negative); Protein,Urine Negative (Negative); Specific Gravity,Urine 1.008 (1.001-1.035); Urobilinogen,Urine <2.0 mg/dL (<2.0)
--- NOTE | 2024-02-17 05:50 | ED ---
General Adult HPI - General Chief complaint: Urogenital Stated complaint: Urinary incontinence Time Seen by Provider: 02/17/24 04:13 Source: patient Mode of arrival: ambulatory - History of Present Illness Initial comments: Patient is a 73 y/o male PMH HTN presenting for urinary retention. Hx provided by patient's daughter as patient only speaks maltese. Pt has been having having ongoing issues with urinary retention requiring yanes catheter insertion for the last few weeks. Yesterday patient had his yanes removed by Dr. Pabon and was able to urinate afterwards however upon returning home began having difficulty urinating again. He has not been able to urinate since 10 PM last night and now feels lower abdominal bloating and fullness. Patient's daughter states they were told that patient has been requiring a yanes due to BPH. Pt denies additional abdominal pain, nausea, vomiting, diarrhea, fevers, chills, dysuria, hematuria, back pain or saddle anesthesia. - Related Data Home Medications Medication Instructions Recorded Confirmed Lisinopril-Hctz 20-25 mg 1 tab PO DAILY 01/28/24 01/28/24 [Zestoretic 20-25] Meloxicam [Mobic] 15 mg PO DAILY 01/28/24 01/28/24 Previous Rx's Medication Instructions Recorded Tamsulosin [Flomax] 0.4 mg PO BID 30 Days #60 cap 01/29/24 polyethylene glycoL 3350 [Miralax] 17 gm PO DAILY 30 Days #30 packet 01/29/24 Allergies Allergy/AdvReac Type Severity Reaction Status Date / Time No Known Allergies Allergy Verified 02/17/24 03:57 Review of Systems ROS Statement: Those systems with pertinent positive or pertinent negative responses have been documented in the HPI. ROS Other: All systems not noted in ROS Statement are negative. Past Medical History Past Medical History: Hypertension, Osteoarthritis (OA) History of Any Multi-Drug Resistant Organisms: None Reported Past Surgical History: No Surgical Hx Reported Past Anesthesia/Blood Transfusion Reactions: No Reported Reaction Past Psychological History: No Psychological Hx Reported Smoking Status: Former smoker Past Alcohol Use History: Daily General Exam - General Exam Comments Initial Comments: PE: CONSTITUTIONAL: No apparent distress, well appearing SKIN: Warm, dry, no jaundice, hives or petechiae EYES: Pupils are equally round, extraocular movements intact without nystagmus, clear conjunctiva, non-icteric sclera HENT: Normocephalic, atraumatic, moist mucus membranes, oropharynx clear without exudates NECK: , Full range of motion, normal appearance PULMONARY: Clear to auscultation without wheezes, rhonchi, or rales, normal excursion, no accessory muscle use and no stridor CARDIOVASCULAR: Regular rate, rhythm, normal S1 and S2. No appreciated murmurs, rubs or gallops. Strong radial pulses with intact distal perfusion. No lower extremity edema GASTROINTESTINAL: Soft, active bowel sounds throughout, non-tender, non- distended, no palpable masses, no rebound or guarding. No hepatosplenomegaly MUSCULOSKELETAL: Extremities have no gross deformity, no edema, redness, or swelling. NEUROLOGIC:_a/o x 3, GCS 15, normal mentation and speech. Moves all extremities x 4 without motor or sensory deficit PSYCHIATRIC:_normal mood and affect, thought process is clear and linear Course Vital Signs 02/17/24 02/17/24 03:52 06:00 Temperature 97.9 F 97.9 F Pulse Rate 84 88 Respiratory 18 18 Rate Blood Pressure 169/77 132/80 O2 Sat by Pulse 98 97 Oximetry Medical Decision Making - Medical Decision Making Was pt. sent in by a medical professional or institution (, PA, DIP LUBE OPERATOR, urgent care, hospital, or residential...) When possible be specific @ -No Did you speak to anyone other than the patient for history (EMS, parent, family, police, friend...)? What history was obtained from this source @ -Spoke with patient's daughter who assisted with history Did you review nursing and triage notes (agree or disagree)? Why? @ -I reviewed and agree with nursing and triage notes Were old charts reviewed (outside hosp., previous admission, EMS record, old EKG, old radiological studies, urgent care reports/EKG's, residential records)? Report findings @ -Medical records reviewed- pt here on 02/02 for similar complaint Differential Diagnosis (chest pain, altered mental status, abdominal pain women, abdominal pain men, vaginal bleeding, weakness, fever, dyspnea, syncope, headache, dizziness, GI bleed, back pain, seizure, CVA, palpatations, mental health, musculoskeletal)? @ -Differential diagnosis remains extensive acute urinary retention secondary to BPH, other obstructive pathology such as ureterolithiasis, constipation, UTI, neurogenic bladder, this is not meant to be an all-inclusive list EKG interpreted by me (3pts min.). @ -As above X-rays interpreted by me (1pt min.). @ -None done CT interpreted by me (1pt min.). @ -None done U/S interpreted by me (1pt. min.). @ -None done What testing was considered but not performed or refused? (CT, X-rays, U/S, labs)? Why? @ -None What meds were considered but not given or refused? Why? @ -None Did you discuss the management of the patient with other professionals (professionals i.e. Dr., PA, DIP LUBE OPERATOR, lab, RT, psych nurse, social services coordinator, chucker, teacher, chemical instrumentation officer, skilled nursing case manager)? Give summary @ -No Was smoking cessation discussed for >3mins.? @ -No Was critical care preformed (if so, how long)? @ -No Were there social determinants of health that impacted care today? How? (Homelessness, low income, unemployed, alcoholism, drug addiction, transportation, low edu. Level, literacy, decrease access to med. care, detention, rehab)? @ -Non Lebanese speaking Was there de-escalation of care discussed even if they declined (Discuss DNR or withdrawal of care, Hospice)? @ -No What co-morbidities impacted this encounter? (DM, HTN, Smoking, COPD, CAD, Cancer, CVA, ARF, Chemo, Hep., AIDS, mental health diagnosis, sleep apnea, morbid obesity)? @ -None Was patient admitted / discharged? Hospital course, mention meds given and route, prescriptions, significant lab abnormalities, going to OR and other pertinent info. @ -Discharged-patient is a 73-year-old gentleman presenting today for acute urinary retention. Has history of the same. Has been requiring Yanes catheter insertion. Bladder scan performed by RN prior to my assessment showed ap proximately 900 cc of urine in patient's bladder. A Yanes catheter was inserted and drained approximately 900 cc of urine. On my assessment patient has Yanes catheter in place draining clear yellow urine. He is comfortable and has no additional complaints. States symptoms of abdominal bloating have resolved since catheter placement. Patient apparently has been requiring catheter for BPH. He is well-appearing and afebrile. He denies back pain or saddle anesthesia, denies fevers, chills dysuria or hematuria. Urinalysis was sent. No signs of infection or hematuria. Discussed with patient and daughter plan for discharge with Yanes catheter and to call patient's urologist in the morning to discuss further plans. We discussed signs symptoms warranting return to emergency department. Patient and daughter were comfortable discharge at this point. In my medical judgment there is currently no evidence of an immediate life- threatening or surgical condition. Discharge is therefore indicated at this time. Discharge treatment instructions, follow up instructions, and appropriate emergency department return precautions were discussed with the patient and/or medical decision maker. Patient and/or medical decision maker expressed understanding of and agreed with the treatment plan, follow up instructions, and emergency department return precaution. All patient's and/or medical decision maker's questions were answered. Undiagnosed new problem with uncertain prognosis? @ -No Drug Therapy requiring intensive monitoring for toxicity (Heparin, Nitro, Insulin, Cardizem)? @ -No Were any procedures done? @ -No Diagnosis/symptom? @ -Acute urinary retention Acute, or Chronic, or Acute on Chronic? @ -Acute Uncomplicated (without systemic symptoms) or Complicated (systemic symptoms)? @ Uncomplicated Side effects of treatment? @ -No Exacerbation, Progression, or Severe Exacerbation? @ -No Poses a threat to life or bodily function? How? (Chest pain, [place], [place], pneumonia, PE, COPD, DKA, ARF, appy, cholecystitis, CVA, Diverticulitis, Homicidal, Suicidal, threat to staff... and all critical care pts) @ -No - Lab Data Lab Results 02/17/24 Range/Units 05:15 Urine Color Colorless Urine Appearance Clear (Clear) Urine pH 6.0 (5.0-8.0) Ur Specific [place] 1.008 (1.001-1.035) Urine Protein Negative (Negative) Urine Glucose (UA) Negative (Negative) Urine Ketones Negative (Negative) Urine Blood Negative (Negative) Urine Nitrite Negative (Negative) Urine Bilirubin Negative (Negative) Urine Urobilinogen <2.0 (<2.0) mg/dL Ur Leukocyte Esterase Negative (Negative) Disposition Clinical Impression: Urinary retention Disposition: HOME SELF-CARE Condition: Good Instructions (If sedation given, give patient instructions): Urinary Retention in Men (ED) Additional Instructions: Every disease is a spectrum and a small chance still exists that a serious condition could develop, for this reason, please monitor yourself closely for new, changing or worsening symptoms, decreased urine output into catheter or no urine output into patient's catheter for greater than 8 hours, blood in urine, fevers or confusion, abdominal distention or abdominal pain, inability to tolerate/keep down fluids or your medications, inability to follow up with outpatient providers as instructed and should you experience these symptoms or should you have any further concerns for your wellbeing please return to the ED or call 911 immediately. Please follow-up with your urologist within the next 24 hours PLEASE call your primary care physician as soon as possible to arrange / discuss plan for followup appointment. Appointment in the next 1-3 days is strongly encouraged if possible. PLEASE let us know here before you leave if there is anything further we can do to be of any assistance. Take care and feel Better! Is patient prescribed a controlled substance at d/c from ED?: No Referrals: Irving Tilley MD [Primary Care Provider] - 1-2 days
[2024-02-17 06:02] VITALS: BP 132/80; PULSE 88
== END 2024-02-17 06:23 | disposition home or self-care (01) ==
LOC: EC 03:50
CPT/HCPCS: 51702; 51798; 81003; 99283

== ENCOUNTER → 2024-02-17 | Outpatient (CLI) | payer MEDICARE ==
--- NOTE | 2024-02-17 17:58 | PE ---
EXAMINATION TYPE: PET CT fusion skull to thigh DATE OF EXAM: 02/17/2024 CLINICAL INDICATION:Male, 73 years old with history of R91.1 LUNG NODULE; TECHNIQUE: Following the intravenous administration of 12.8 mCi of F-18 FDG, whole body images are performed from the skull base to the midthigh. Images are reviewed on the computer in the coronal, a xial, and sagittal planes. Reconstructed rotating images are created on independent workstation and reviewed on the computer. A non-contrast CT is performed in conjunction with the PET scan. Glucose level 93 mg/dL CT DLP: 931.55 mGycm, Automated exposure control for dose reduction was used. COMPARISON: CT 01/28/2024, PET/CT None, MRI: None FINDINGS: Mediastinal SUV mean is 2.3. Hepatic parenchyma SUV mean is 3.2. SKULL BASE AND NECK: Moderate mucosal thickening in the left maxillary sinus with air-fluid level. There is left maxillary molar periapical lucency extending into the maxillary sinus. There is focal FDG activity around the molar with a maximum SUV of 6.9. CHEST, MEDIASTINUM, AND HILAR REGION: Single left lower lobe subpleural 1.1 cm pulmonary nodule with a maximum SUV of 1.3 which is below ba ckground. Large left lower FDG avid paratracheal lymph nodes measuring up to 1.5 cm short axis. Demonstrates a maximum SUV of 7.9. Enlarged FDG avid subcarinal lymph node measured 1.4 cm short axis. Demonstrates a maximum SUV of 8.7 . Subcentimeter FDG avid right upper paratracheal lymph nodes with a maximum SUV of 6.9. FDG avid left hilar lymph nodes with a maximum SUV of 9.1. Subcentimeter right hilar lymph nodes with maximum SUV of 4.2. ABDOMEN AND PELVIS: No suspicious radiotracer activity. MUSCULOSKELETAL STRUCTURES: No suspicious radiotracer activity. OTHER CT: Bilateral shoulder arthropathy. Multilevel degenerative changes of the visualized spine. De generative changes of both SI joints with left anterior SI joint bridging. Mildly enlarged heart. Kin ateral renal sinus cysts. Mild atherosclerotic calcification of the aorta and its branches. Enlarged prostate gland measuring 6.3 cm in transverse dimension. Decompressed bladder with Trin[place] catheter in place. IMPRESSION: 1. Single left lower lobe 1.1 cm pulmonary nodule with FDG activity below background. Follow-up CT c hest in 3 months is recommended. 2. Prominent and enlarged mediastinal and bilateral hilar FDG active lymph nodes. This could be seen with variety etiologies such as sarcoidosis versus metastasis from unknown primary versus less likel y reactive. Further workup is recommended. 3. Moderate mucosal thickening of the left maxillary sinus with left maxillary molar periapical luce ncy and FDG activity suggesting infection/inflammation. Suggest a dental cavity. Possible communicati on with the maxillary sinus. Dental evaluation is recommended. [facility], , 02/17/2024 5:55 PM
== END | disposition home or self-care (01) ==
LOC: RADPETMAIN 11:23
PROVIDERS: ATTEND Family Medicine
CPT/HCPCS: 78815

== ENCOUNTER → 2024-07-09 | Outpatient (CLI) | payer MEDICARE ==
[2024-07-09 10:43] LABS: African American GFR (CKD) >90 (>60 ml/min/1.73 sqM); Blood Urea Nitrogen 19 mg/dL (9-20); Non-African American GFR(CKD) >90 (>60 ml/min/1.73 sqM)
--- NOTE | 2024-07-09 11:08 | CT ---
EXAMINATION TYPE: CT chest w con DATE OF EXAM: 07/09/2024 COMPARISON: PET/CT 02/17/[address] abdomen and pelvis 01/28/2024 CLINICAL INDICATION: Male, 74 years old with history of R91.1 SOLITARY PULMONARY NODULE; PHH, Lung no dule TECHNIQUE: CT scan of the chest is performed with IV Contrast, patient injected with 100ml mL of Isovue 370. AR P Images are created on CT scanner and reviewed. 3D reconstructed images are created on an [employer] workstation and reviewed. CT DLP: 525.[address] CTDI: mGy Automated exposure control for dose reduction was used. FINDINGS: LUNGS: 11 mm left lower lobe pulmonary nodule seen best on image 41 is stable relative to prior CT ab domen and pelvis and PET/CT. Continued follow-up in 6 months is advised. No additional nodules presen t. There is no pleural effusion or pneumothorax seen. The tracheobronchial tree is patent. MEDIASTINUM: There are no greater than 1 cm hilar or mediastinal lymph nodes. No pericardial effusi on is seen. The heart is enlarged. OTHER: Parapelvic renal cysts and renal cortical cysts noted. IMPRESSION: Stable 11 mm left lower lobe pulmonary nodule. Continued 6 month follow-up advised. Follow-up recommendations for incidental pulmonary nodules are per [employer] or [employer]. [facility], , 07/09/2024 11:05 AM
== END | disposition home or self-care (01) ==
LOC: RADCTMAIN 10:10
PROVIDERS: ATTEND Family Medicine
DX: R91.1 Solitary pulmonary nodule (principal); N28.1 Cyst of kidney, acquired
CPT/HCPCS: 71260; 82565; 84520